=== PATIENT | female | born 2000 | race Caucasian/White ===

== ENCOUNTER 2021-01-07 00:19 | Emergency (ER) | payer OTHER ==
[~2021-01-07] VITALS: Ht 160 cm; Wt 49.9 kg
== END 2021-01-07 03:00 | disposition home or self-care (01) ==
LOC: ER 00:19
DX: S71.111A Laceration without foreign body, right thigh, initial encounter (principal); Z23 Encounter for immunization; W25.XXXA Contact with sharp glass, initial encounter
CPT/HCPCS: 12001; 90471; 90714; 99282

== ENCOUNTER 2021-01-16 14:15 | Emergency (ER) | payer OTHER ==
[~2021-01-16] VITALS: Ht 160 cm; Wt 49.9 kg
== END 2021-01-16 14:26 | disposition home or self-care (01) ==
LOC: ER 14:15
DX: S81.011D Laceration without foreign body, right knee, subsequent encounter (principal); X58.XXXD Exposure to other specified factors, subsequent encounter